=== PATIENT | male | born 1945 | race Caucasian/White ===

== ENCOUNTER 2023-01-09 11:28 | Emergency (ER) | payer BC, SELFPAY ==
--- NOTE | ~2023-01-09 | XR_ITS ---
EXAM: XR hip LT min 2V DATE: 01/09/2023 14:38 HISTORY: pain, NO INJURY . COMPARISON: None available. FINDINGS: Normal mineralization. Lumbar degenerative disc disease. Moderate bilateral hip osteoarthr itis. Scattered pelvic enthesopathy. Atherosclerotic calcification. Pelvic phleboliths. IMPRESSION: No acute osseous finding the left hip. Reviewed, dictated and finalized at location K.
--- NOTE | ~2023-01-09 | XR_ITS ---
EXAM: XR lumbar spine 2-3V DATE: 01/09/2023 14:38 HISTORY: left SI pain, NO INJURY . COMPARISON: 05/01/2008. FINDINGS: 5 nonrib-bearing lumbar-type vertebral bodies. Pedicles intact. Lumbar scoliosis and lumba r straightening multilevel severe disc space narrowing, marginal osteophytosis, and vacuum phenomenon . Multilevel mid and lower lumbar facet sclerosis and hypertrophy. Aortic calcifications without evid ent aneurysm. IMPRESSION: Lumbar scoliosis. Multilevel severe degenerative disc disease. Multilevel moderate mid and lower lumbar facet arthropathy. Reviewed, dictated and finalized at location K.
[2023-01-09 11:31] VITALS: BP 173/81; RESP 18; TEMP 36.3
--- NOTE | 2023-01-09 14:31 | ED.LOWEXIN ---
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 No numbness or tingling to the affected leg. No saddle anesthesia or difficulty controlling urine/bowel. Minimal improvement with occasional [id number] pain medication. Has a chronically bad left ankle due to a war injury and has a bad knee on the right side that is due for a total knee arthroplasty. Related Data Allergies Allergy/AdvReac Type Severity Reaction Status Date / Time ibuprofen Allergy Unknown Verified 06/27/08 11:55 NKDA Allergy Mild Uncoded 05/01/08 06:54 Review of Systems Constitutional: Constitutional: Denies chills and Denies fever(s) Musculoskeletal: Musculoskeletal: Reports back pain, Denies arthralgias and Denies joint swelling Neurologic: Denies focal weakness and Denies numbness PMFSH Past Medical History Medical History (Updated 01/09/23 @ 15:46 by Jama Miller MD) Osteoarthritis of right knee Surgical History Surgical History (Updated 01/09/23 @ 14:33 by Jama Miller MD) History of ankle surgery Social History Social History (Updated 01/09/23 @ 14:34 by Jama Miller MD) Second hand tobacco smoke exposure: No 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 Exam Narrative: GENERAL: Well-appearing, well-nourished, and in no acute distress. HEAD: Normocephalic, atraumatic. ENT: Mucous membranes moist. Back: No reproducible midline tenderness to T/L-spine. There is tenderness to the left SI region near L5-S1. EXTREMITIES: Normal range of motion. No edema. SKIN: Warm, dry, no rash. NEURO: Alert and oriented x3. PSYCH: Normal mood and affect. Course Course Emergency Course: Informed results. Recommend conservative treatment option. Follow-up with PCP. Patient also gets care at the [place]. Vital Signs Vital signs: Vital Signs Temperature 97.4 F L 01/09/23 11:31 Respiratory Rate 18 01/09/23 11:31 Blood Pressure 173/81 H 01/09/23 11:31 Oxygen Delivery Room Air 01/09/23 11:31 Temperature 97.4 F L 01/09/23 11:31 Respiratory Rate 18 01/09/23 11:31 Blood Pressure 173/81 H 01/09/23 11:31 Oxygen Delivery Room Air 01/09/23 11:31 MDM - Extremity Injury (Lower) Imaging Data Radiologist's impression: ITS Impressions Hip X-Ray 01/09/23 14:59 IMPRESSION: No acute osseous finding the left hip. Lumbar Spine X-Ray 01/09/23 15:00 IMPRESSION: Lumbar scoliosis. Multilevel severe degenerative disc disease. Multilevel moderate mid and lower lumbar facet arthropathy. Discharge Plan Discharge Clinical Impression: Chronic low back pain Patient Disposition: Home, Self-Care Condition: Stable Instructions: Chronic Back Pain (DC) Additional Instructions: Return to the ER if you have increased pain in your back, you develop lower extremity weakness/numbness/paralysis, you have numbness or tingling in your private parts, or you are unable to control your ability to urinate/stool. Prescriptions: New tizanidine 2 mg capsule 2 mg PO Q8H PRN (Reason: muscle spasticity) Qty: 14 0RF naproxen 250 mg tablet 250 mg PO BID Qty: 14 0RF Follow-up/Referrals: Justo Franklin MD [Primary Care Provider] -
[2023-01-09 16:03] VITALS: BP 138/84; PULSE 80; RESP 16; O2SAT 99
== END 2023-01-09 16:04 | disposition home or self-care (01) ==
PROVIDERS: Emergency Provider Emergency Medicine; PCP Emergency Medicine
DX: M54.50 Low back pain, unspecified (principal); G89.29 Other chronic pain
CPT/HCPCS: 72100; 73502; 99284

== ENCOUNTER 2024-07-03 01:36 | Day surgery (SDC) | payer MEDICARE, SELFPAY ==
[2024-06-22 10:55] VITALS: BMI 27.5
--- OUTSIDE RECORDS SUMMARY | 2024-07-03 01:39 | XMS_ITS | Clinical Summary ---
Author Organization [facility] Address [address] [place] [address] Care Team Providers Care Grazing Examiner Name Role Phone Unavailable Primary Care Provider Unavailabl e Source Comments [facility],non-owned Affiliates and Associated Physician Practices is amultiple site organization consisting of ambulatory clinics and hospital sitesin [place] and [place]. This disclosure is being madepursuant to the Care Everywhere program and may not contain all information available regarding this patient. Last updated 17.[facility] Allergies Active Allergy Reactions Criticality Noted Date Comments Ibuprofen Vomiting 10/10/2017 Medications * Be aware that medications may not be up to date on this document. Alwaysverify current medications with the patient. No known medications Social History Tobacco Use Types Packs/Day Years Used Date Smoking Tobacco: Never Assessed Sex and Gender Information Value Date Recorded Sex Assigned at Not on file Legal Sex Male 12:39 PM RADIOLOGICAL TECHNICIAN Gender Identity Not on file Sexual Orientation Not on file Last Filed Vital Signs Vital Sign Reading Time Taken Comments Blood Pressure 155/84 01/25/2023 2:51 PM RADIOLOGICAL TECHNICIAN Pulse 74 01/25/2023 2:51 PM RADIOLOGICAL TECHNICIAN Temperature 36.3 C (97.4 F) 01/25/2023 2:51 PM RADIOLOGICAL TECHNICIAN Respiratory Rate 16 01/25/2023 2:51 PM RADIOLOGICAL TECHNICIAN Oxygen Saturation 96% 01/25/2023 2:51 PM RADIOLOGICAL TECHNICIAN Inhaled Oxygen Concentration - - Weight 84.8 kg (187 lb) 01/25/2023 2:51 PM RADIOLOGICAL TECHNICIAN Height 177.8 cm (5' 10 ) 01/25/2023 2:51 PM RADIOLOGICAL TECHNICIAN Body Mass Index 26.83 01/25/2023 2:51 PM RADIOLOGICAL TECHNICIAN Plan of Treatment Health Maintenance Due Date Last Done Comments DTAP/TDAP/TD VACCINES (1 - Tdap) 02/04/1964 PNEUMOCOCCAL VACCINE 50+ (1 of 1 - PCV) 1995 ZOSTER VACCINE (1 of 2) 1995 Respiratory Syncytial Virus (RSV) Vaccine Pt: or over 60 yrs (1 - 1-dose 75+ series) 02/04/2020 COVID-19 VACCINE ( - season) 2023 07/01/2021, 01/14/2021, 05/31/2020, Additional history exists DEPRESSION SCREENING 03/15/2024 INFLUENZA VACCINE (Season Ended) 2024 HEPATITIS B VACCINE Aged Out No longe r eligible based on patient's age to complete this topic HIB VACCINE Aged Out No longer eligi ble based on patient's age to complete this topic HPV VACCINE Aged Out No longer eligi ble based on patient's age to complete this topic MENINGOCOCCAL (Group B) VACCINE SHARED DECISION-MAKING Aged Out No longer eligible based on patient's age to complete this topic MENINGOCOCCAL GROUPS A/C/Y/W VACCINE Aged Out No longer eligible based on patient's age to complete this topic Insurance [employer] ANTH GEN [employer]R
--- OUTSIDE RECORDS SUMMARY | 2024-07-03 01:39 | XMS_ITS | Continuity of Care Document ---
Author Organization [facility] Address [address] [place] [address] [address] [place] [address] Phone Care Team Providers Care Lokie Engineer Name Role Phone Darion Lau MD, MD Unavailable Unavailable Procedures Procedure Date YAG PC AFTER CATARACT LASER SURGERY AFTER CATARACT LASER SURGERY OFFICE/OUTPATIENT VISIT, EST DILATED EXAM RIGHT EYE DILATED EXAM LEFT EYE CATARACT SURG W/IOL, 1 STAGE CATARACT SURG W/IOL, 1 STAGE OFFICE/OUTPATIENT VISIT, [facility] OPHTHALMIC BIOMETRY OPHTHALMIC BIOMETRY SPECIAL EYE EXAM, INITIAL SPECIAL EYE EXAM, INITIAL Advance Directives Directive Yes / No Effective Date File Name No Information Encounters Encounter Description Practice Location Reason(s) For Visit Diagnoses Date Provider Providers Copied on Encounter Op[facility], [address] [place] [address] [address], [place], [id number], tel:[phone] [address] [place] [address] No Information 5 Judi Orlando. [address], [address], [place], [place], [id number] , [place]. [phone] Referring Provider: Darion Neal, [address], [place], [address] . tel:[phone] Ophthalmology [facility], [address] [place] [address] [address], [place], [place], [id number], tel:[phone] [address] [place] [address] No Information 5 Judi Orlando. [address], [address], [place], [place], [id number] , [place]. tel:[phone] Referring Provider: Darion Neal, [address], [place], [address] . tel:[phone] OFFICE/OUTPA TIENT VISIT, [facility], [address] [place] [address], [id number], [place] tel:[phone] [address] [place] [address] No Information 5 Judi Orlando. [address], [address], [place], [place], [id number] , [place]. tel:[phone] Referring Provider: Darion Neal, [address], [place], [address] . tel:[phone] [facility], [address] [place] [address], [id number], [place] tel:[phone] [address] [place] [address] No Information 4 Judi Orlando. [address], [place], [place], [id number] , [place]. [phone] Referring Provider: Darion Neal, [address], [place], [address] . tel:[phone] [facility], [address] [place] [address], [id number], [place] tel:[phone] [address] [place] [address] No Information 4 Judi Orlando. [address], [place], [place], [id number] , [place]. tel:[phone] Referring Provider: Darion Neal, [address], [place], [address] . tel:[phone] OFFICE/OUTPA TIENT VISIT, [facility], [address] [place] [address], [id number], [place] tel:[phone] [facility] D[facility] Bernard No Information Judi Orlando. [address], [place], [place], [id number] , [place]. tel:[phone] Referring Provider: Darion Lau MD P, [address], [place], [address] . tel:[phone] Family History Family Member Type Diagnosis Age At Onset No Information Payers Payer name Insurance type Covered green party ID Authordane santana(s) [facility] [id number] Social History Type Description Quantity Date Captured Comments Sex Male Smoking Status No Information Chief Complaint And Reason For Visit No Information Reason For Referral Reason For Referral No Information History Of Present Illness Encounter Date Complaint History Of Prese nt Illness No Information Functional Status Date Functional Assessmen t No Information Instructions Date Instruction Additional Infor mation No Information Assessments Type Assessment Date No Information Patient Care Teams Name Effective Dates (start - stop) Status Members No Information
--- OUTSIDE RECORDS SUMMARY | 2024-07-03 01:39 | XMS_ITS | Data Portability ---
Author Organization [facility], Main Office Address [address] [place] [address] Assessment Encounter Date Assessment Date Assessment LastModified by Organization Details LastModified Time 05/29/2024 05/29/2024 03/31/2024: VIT D 10 Gluc 119 LDL 117 [email or web address] Not available 05/29/2024 13:19:17 Plan of Treatment Reminders Order Date Submit Date Provider Last Modified By Organization Details Last Modified Time Details Appointments Any 15 2024 01:00P M Adolfo aj MD Not available Not available Not available Lab vitamin D, 25-hydrox y, total, serum 2024 025 [facility], [address] [facility], [place], [address], 06/07/2024 09:17:31 CBC w/ auto diff 2024 025 [facility], [address] [facility], [place], [address], 06/07/2024 09:16:48 CMP, serum or plasma 2024 025 [facility], [address] [facility], [place], [address], 06/07/2024 09:16:56 TSH, serum or plasma 2024 025 [facility], [address] [facility], [place], [address], 06/07/2024 09:17:05 T4, free, serum 2024 025 [facility], [address] [facility], [place], [address], 06/07/2024 09:17:14 lipid panel, serum 2024 025 [email or web address] [facility], [address], [place], [address], 06/07/2024 09:17:23 vitamin D, 25-hydrox y, total, serum 2024 025 [facility], [address] [facility], [place], [address], 04/01/2024 05:32:28 CBC w/ auto diff 2024 025 [facility], [address] [facility], [place], [address], 04/01/2024 05:32:25 CMP, serum or plasma 2024 025 [facility], [address] [facility], [place], [address], 04/01/2024 05:32:24 TSH, serum or plasma 2024 025 [facility], [address] [facility], [place], [address], 04/01/2024 05:32:27 T4, free, serum 2024 025 [facility], [address] [facility], [place], [address], 04/01/2024 05:32:26 lipid panel, serum 2024 025 [facility], [address] [facility], [place], [address], 04/01/2024 05:32:22 Referral orthopedi c surgeon referral - Please call patient to schedule an appointme nt. Thank you. 2024 025 JEFFRY Varner MD, [address], [address], [address], 05/29/2024 18:25:19 Procedures colonosco py screening (PROC) - Please call patient to schedule an appointme nt. Thank you. 2024 025 JEFFRY Jensen MD, [address] [place] [address] [address], [place], [address], 05/30/2024 10:00:58 upper endoscopy procedure (EGD) (PROC) - Please call patient to schedule an appointme nt. Thank you. 2024 025 JEFFRY Jensen MD, [address] [place] [address] [address], [place], [address], 05/30/2024 10:00:58 colonosco py screening (PROC) 2024 025 JEFFRY Jensen MD, [address] [place] [address] [address], [place], [address], 05/04/2024 10:01:08 upper endoscopy procedure (EGD) (PROC) - Please call patient to schedule. 2024 025 JEFFRY Jensen MD, [address] [place] [address] [address], [place], [address], 05/04/2024 10:30:45 Surgeries None recorded. Imaging None recorded. Medication Orders rosuvasta tin 20 mg tablet 2024 025 [facility] [address], [place], [address], 05/29/2024 13:20:15 cholecalc iferol (vitamin D3) 1,250 mcg (50,000 unit) capsule 2024 025 [facility] [address], [address], 05/29/2024 13:20:15 losartan 25 mg tablet 2024 025 [facility] [address], [place], [address], 05/29/2024 13:20:16 omeprazol e 20 mg capsule,d elayed release 2024 025 [facility] [address], [place], [address], 05/29/2024 13:20:15 losartan 25 mg tablet 2024 025 [facility] [address] In [facility], [address] [place] [address], [place], [address], 03/27/2024 16:59:52 omeprazol e 20 mg capsule,d elayed release 2024 025 [facility] [address] In [facility], [address] [place] [address], [place], [address], 03/27/2024 16:59:53 Patient TargetsNo targets recorded. Patient InstructionsNo instructions recorded. Reason for Referral Orthopedic Surgeon Referral for Pain of left hip joint Please call patient to schedule an appointment. Thank you. Referring Physician: Adolfo Hernandez, Internal Medicine, Encounter Date: 05/29/2024 Results Created Date Observation Date Name Description Value Unit Range Abnormal Flag Note LastModifiedBy Organization Detail LastModifiedTime 03/31/1904/01/2024 LIPID PANEL , STAND SABINA cholesterol, total 193 mg/dL <200 normal Not Available [facility] [address] [address] [place], [address], 04/01/2024 05:32:22 03/31/1904/01/2024 LIPID PANEL , STAND SABINA HDL cholesterol 55 mg/dL > or = 40 normal Not Available [facility] [address] [place], [address], 04/01/2024 05:32:22 03/31/19 25 04/01/2024 LIPID PANEL , STAND SABINA triglyceride s 100 mg/dL <150 normal Not Available [facility] [address] [place], [address], 04/01/2024 05:32:22 03/31/1904/01/2024 LIPID PANEL , STAND SABINA LDL-choleste rol 117 mg/dL _(sourav c) high Refer ence range : <100 Gabriela able range <100 mg/dL for prima ry preve ntion ; <70 mg/dL for patie nts with CHD or diabe tic patie nts with > or = 2 CHD risk facto rs. LDL-C is now calcu lated using the Opal n-Hop kins calcu latio n, which is a valid ated novel metho d provi roman anderson r accur acy than the Fried nikia equat ion in the estim ation of LDL-C . Opal rojas SS et al. MICHELLE. 2013; 310(1 9): 2061- 2068 (http ://ed ucati on.ShoutNow. com/f aq/FA Q164) Not Available [facility] [address] [address] [address], [place], [address], 04/01/2024 05:32:22 03/31/1904/01/2024 LIPID PANEL , STAND SABINA chol/HDLC ratio 3.5 (calc ) <5.0 normal Not Available [facility] [address] [address] [place], [address], 04/01/2024 05:32:22 03/31/1904/01/2024 LIPID PANEL , STAND SABINA non HDL cholesterol 138 mg/dL _(sourav c) <130 high For patie nts with diabe antonietta plus 1 major ASCVD risk facto r, treat ing to a non-H DL-C goal of <100 mg/dL (LDL- C of <70 mg/dL ) is consi tom rubio c optio n. Not Available [facility] [address] [place], [address], 04/01/2024 05:32:22 01/17/20 25 04/01/2024 COMPR EHENS ALFREDO METAB OLIC PANEL glucose 119 mg/dL 65-99 high Fasti ng refer ence inter jono For someo ne witho ut known diabe antonietta, a gluco se value betwe en 100 and 125 mg/dL is consi stent with predi abete s and shoul d be confi rmed with a follo w-up test. Not Available [address], [address], 04/01/2024 05:32:24 03/31/19 25 04/01/2024 COMPR EHENS ALFREDO METAB OLIC PANEL urea nitrogen (BUN) 15 mg/dL 7-25 normal Not Available [address], [address], 04/01/2024 05:32:24 03/31/19 25 04/01/2024 COMPR EHENS ALFREDO METAB OLIC PANEL creatinine 1.05 mg/dL 0.70-1 .28 normal Not Available [address] [address] [place], [address], 04/01/2024 05:32:24 03/31/19 25 04/01/2024 COMPR EHENS ALFREDO METAB OLIC PANEL eGFR 72 mL/mi n/1.7 3m2 > or = 60 normal Not Available [address], [address], 04/01/2024 05:32:24 03/31/19 25 04/01/2024 COMPR EHENS ALFREDO METAB OLIC PANEL BUN/creatini ne ratio SEE NOTE: (calc ) 6-22 Not Repor kay: BUN and Creat inine are withi n refer ence range . Not Available [facility] [address], [address], 04/01/2024 05:32:24 03/31/19 25 04/01/2024 COMPR EHENS ALFREDO METAB OLIC PANEL sodium 136 mmol/ L 135-14 6 normal Not Available [address], [address], 04/01/2024 05:32:24 03/31/19 25 04/01/2024 COMPR EHENS ALFREDO METAB OLIC PANEL potassium 4.4 mmol/ L 3.5-5. 3 normal Not Available [address], [address], 04/01/2024 05:32:24 03/31/19 25 04/01/2024 COMPR EHENS ALFREDO METAB OLIC PANEL chloride 102 mmol/ L 98-110 normal Not Available [address], [address], 04/01/2024 05:32:24 03/31/19 25 04/01/2024 COMPR EHENS ALFREDO METAB OLIC PANEL carbon dioxide 29 mmol/ L 20-32 normal Not Available [address], [address], 04/01/2024 05:32:24 03/31/19 25 04/01/2024 COMPR EHENS ALFREDO METAB OLIC PANEL calcium 8.9 mg/dL 8.6-10 .3 normal Not Available [address], [address], 04/01/2024 05:32:24 03/31/19 25 04/01/2024 COMPR EHENS ALFREDO METAB OLIC PANEL protein, total 6.6 g/dL 6.1-8. 1 normal Not Available [address], [address], 04/01/2024 05:32:24 03/31/19 25 04/01/2024 COMPR EHENS ALFREDO METAB OLIC PANEL albumin 4.2 g/dL 3.6-5. 1 normal Not Available [address], [address], 04/01/2024 05:32:24 03/31/19 25 04/01/2024 COMPR EHENS ALFREDO METAB OLIC PANEL globulin 2.4 g/dL_ (calc ) 1.9-3. 7 normal Not Available [address], [address], 04/01/2024 05:32:24 03/31/19 25 04/01/2024 COMPR EHENS ALFREDO METAB OLIC PANEL albumin/glob ulin ratio 1.8 (calc ) 1.0-2. 5 normal Not Available [address], [address], 04/01/2024 05:32:24 03/31/19 25 04/01/2024 COMPR EHENS ALFREDO METAB OLIC PANEL bilirubin, total 0.6 mg/dL 0.2-1. 2 normal Not Available [address], [address], 04/01/2024 05:32:24 03/31/19 25 04/01/2024 COMPR EHENS ALFREDO METAB OLIC PANEL alkaline phosphatase 98 U/L 35-144 normal Not Available [address], [address], 04/01/2024 05:32:24 03/31/19 25 04/01/2024 COMPR EHENS ALFREDO METAB OLIC PANEL AST 15 U/L 10-35 normal Not Available [address], [address], 04/01/2024 05:32:24 03/31/19 25 04/01/2024 COMPR EHENS ALFREDO METAB OLIC PANEL ALT 15 U/L 9-46 normal Not Available [address], [address], 04/01/2024 05:32:24 03/31/19 25 04/01/2024 CBC (INCL UDES DIFF/ PLT) white blood cell count 7.1 thous and/u L 3.8-10 .8 normal Not Available [address], [address], 04/01/2024 05:32:25 03/31/1904/01/2024 CBC (INCL UDES DIFF/ PLT) red blood cell count 4.96 kendra on/uL 4.20-5 .80 normal Not Available [address], [address], 04/01/2024 05:32:25 03/31/1904/01/2024 CBC (INCL UDES DIFF/ PLT) hemoglobin 15.3 g/dL 13.2-1 7.1 normal Not Available [address], [address], 04/01/2024 05:32:25 03/31/1904/01/2024 CBC (INCL UDES DIFF/ PLT) hematocrit 48.0 % 38.5-5 0.0 normal Not Available [address], [address], 04/01/2024 05:32:25 03/31/1904/01/2024 CBC (INCL UDES DIFF/ PLT) MCV 96.8 fL 80.0-1 00.0 normal Not Available [address], [address], 04/01/2024 05:32:25 03/31/1904/01/2024 CBC (INCL UDES DIFF/ PLT) MCH 30.8 pg 27.0-3 3.0 normal Not Available [address], [address], 04/01/2024 05:32:25 03/31/1904/01/2024 CBC (INCL UDES DIFF/ PLT) MCHC 31.9 g/dL 32.0-3 6.0 low For adult s, a sligh t decre ase in the calcu lated MCHC value (in the range of 30 to 32 g/dL) is most likel y not clini deidre signi fican t; howev er, it lizeth d be inter prete d with cauti on in corre [facility] n with other red cell gregory eters and the patie nt's clini sourav condi tion. Not Available [facility] [address], [address], 04/01/2024 05:32:25 03/31/1904/01/2024 CBC (INCL UDES DIFF/ PLT) RDW 12.7 % 11.0-1 5.0 normal Not Available [facility] [address], [address], 04/01/2024 05:32:25 03/31/1904/01/2024 CBC (INCL UDES DIFF/ PLT) platelet count 257 thous and/u L 140-40 0 normal Not Available [facility] [address], [address], 04/01/2024 05:32:25 03/31/19 25 04/01/2024 CBC (INCL UDES DIFF/ PLT) MPV 9.9 fL 7.5-12 .5 normal Not Available [address], [address], 04/01/2024 05:32:25 03/31/19 25 04/01/2024 CBC (INCL UDES DIFF/ PLT) absolute neutrophils 4963 cells /uL 1500-7 800 normal Not Available [address], [address], 04/01/2024 05:32:25 03/31/19 25 04/01/2024 CBC (INCL UDES DIFF/ PLT) absolute lymphocytes 1519 cells /uL 850-39 00 normal Not Available [address], [address], 04/01/2024 05:32:25 03/31/19 25 04/01/2024 CBC (INCL UDES DIFF/ PLT) absolute monocytes 391 cells /uL 200-95 0 normal Not Available [facility] [address], [address], 04/01/2024 05:32:25 03/31/19 25 04/01/2024 CBC (INCL UDES DIFF/ PLT) absolute eosinophils 178 cells /uL 15-500 normal Not Available [facility] [address], [address], 04/01/2024 05:32:25 03/31/19 25 04/01/2024 CBC (INCL UDES DIFF/ PLT) absolute basophils 50 cells /uL 0-200 normal Not Available [facility] [address], [address], 04/01/2024 05:32:25 03/31/1904/01/2024 CBC (INCL UDES DIFF/ PLT) neutrophils 69.9 % normal Not Available [facility] [address], [address], 04/01/2024 05:32:25 03/31/19 25 04/01/2024 CBC (INCL UDES DIFF/ PLT) lymphocytes 21.4 % normal Not Available [facility] [address], [address], 04/01/2024 05:32:25 03/31/1904/01/2024 CBC (INCL UDES DIFF/ PLT) monocytes 5.5 % normal Not Available [facility] [address], [address], 04/01/2024 05:32:25 03/31/1904/01/2024 CBC (INCL UDES DIFF/ PLT) eosinophils 2.5 % normal Not Available [facility] [address], [address], 04/01/2024 05:32:25 03/31/19 25 04/01/2024 CBC (INCL UDES DIFF/ PLT) basophils 0.7 % normal Not Available [facility] [address] [place], [address], 04/01/2024 05:32:25 03/31/1904/01/2024 T4, FREE T4, free 1.1 NG/dL 0.8-1. 8 normal Not Available [facility] [address] [address] [place], [address], 04/01/2024 05:32:26 03/31/1904/01/2024 TSH TSH 2.32 mIU/L 0.40-4 .50 normal Not Available [facility] [address] [address] [place], [address], 04/01/2024 05:32:27 03/31/1904/01/2024 VITAM IN D,25- OH,TO JC,I A vitamin D,25-oh,tota l,ia 10 NG/mL 30-100 low Vitam in D Statu s 25-OH Vitam in D: Defic iency : <20 ng/mL Insuf ficie ncy: 20 - 29 ng/mL Optim al: > or = 30 ng/mL For 25-OH Vitam in D testi ng on patie nts on D2-madrigal pplem entat ion and patie nts for whom quant itati on of D2 and D3 fract ions is requi red, the [facility](TM ) 25-OH VIT D, (D2,D 3), LC/MS /MS is recom marquez d: order code 48142 (abgiail ents >2yrs ). See Note 1 Note 1 For addit ional infor lidya pereyra refer to http: //blanca rojas.Maninder stDia gnost ics.c om/fa q/FAQ 199 (This link is being provi ded for infor gavino man/ jonnie figueroa purpo ses only. ) Not Available [address] [address] [place], [address], 04/01/2024 05:32:28 02/11/20 21 XR, knee No observ ation record ed. [id number] [place] [address], [place], [address], 05/13/2022 13:33:34 Result Notes None recorded. Problems Name Problem SNOMED Code Status Onset Date Resolution Date Notes Provider Name and Address Organization Details Recorded Time Gastroesoph ageal reflux disease without esophagitis 828290251 Active 2024 Adolfo aj MD [address], [place], [address], [facility] 16:57:13 Essential hypertensio n 80933185 Active 2024 Adolfo aj MD [address], [address], [place], [address], [facility] 16:58:10 Pain of left knee joint 7743533376248 07 Active 2024 Adolfo aj MD [address], [address], [place], [address], [facility] 16:58:40 Vitamin D deficiency 55478702 Active 2024 Adolfo aj MD [address], [address], [place], [address], [facility] 16:59:19 Hyperlipide cooper 76541875 Active 2024 Adolfo aj MD [address], [place], [address], [facility] 5 12:59:39 Pain of left hip joint 5743712348255 00 Active 2024 Adolfo aj MD [address], [place], [address], [facility] 5 13:17:57 Problem Notes None recorded. Procedures Surgical History Date Name Laterality Status Provider Name and Address Organization Details Recorded Time total knee replacement completed RAMBO Weldon [facility] 03/27/2024 16:21:57 Hernia Repair completed RAMBO Hinton [facility] 03/27/2024 16:23:02 Carpal tunnel surgery completed Yokasta Raines Tyra [facility] 03/27/2024 16:23:16 excision of lipoma completed Yokasta Raines [facility] 03/27/2024 16:23:52 Imaging Results Imaging Date Name Status LastModified by Organiz ation Details LastModified Time 02/10/2021 XR, knee completed [id number] [place] [address] [facility] [facility] [address], [place], [address], 05/13/2022 13:33:34 Procedure Notes None recorded. Medical Equipment None Reported. Allergies Allergen ID Allergen Name Allergen Category Reaction Reaction Severity Criticality Documentation Date Start Date Code Code System Note Provider Name and Address Organization Details Recorded Time 09993 ibuprofen medicatio n vomiting Not available Not available 05/13/2022 5640 RxNorm Not Available [facility] 13:33:32 Medications Name Sig Start Date Stop Date Status Note LastModified by Organization Details LastModified Time amoxicillin 500 mg capsule TAKE 4 CAPSULES BY MOUTH 1 HOUR PRIOR TO DENTAL APPOINTME NT 03/27 completed Not Available Not Available Not Available hydrocodone 10 mg-acetamin ophen 325 mg tablet TAKE 1 TABLET BY MOUTH EVERY 6 HOURS NEEDED FOR 5 DAYS 03/27 completed Not Available Not Available Not Available triamcinolo ne acetonide 0.1 % topical cream PLEASE SEE ATTACHED FOR DETAILED DIRECTION S 03/27 completed Not Available Not Available Not Available Kenalog 10 mg/mL suspension for injection In office injection administe red by the provider 03/27 completed [facility]: 0003- 0494- 20 Not Available Not Available Not Available cephalexin 500 mg capsule TAKE 1 CAPSULE BY MOUTH EVERY 6 HOURS UNTIL FINISHED 03/27 completed Not Available Not Available Not Available losartan 25 mg tablet Take 1 tablet every day by oral route for 90 days. 2024 active Not Available Not Available Not Avai lable omeprazole 20 mg capsule,del ayed release Take 1 capsule every day by oral route as needed for 90 days. 2024 active Not Available Not Available Not Avai lable rosuvastati n 20 mg tablet TAKE 1 TABLET BY MOUTH EVERY DAY active Not Available Not Available No t Available Antacid 200 mg (as calcium carbonate 500 mg) chewable tablet OTC 05/29 completed Not Available Not Available Not Available lidocaine (PF) 10 mg/mL (1 %) injection solution In office injection administe red by the provider 03/27 completed [facility]: 0409- 4276- 17 Not Available Not Available Not Available cholecalcif marissa (vitamin D3) 1,250 mcg (50,000 unit) capsule TAKE 1 CAPSULE BY MOUTH ONE TIME PER WEEK FOR 90 DAYS active Not Available Not Available No t Available Vitals Date Recorded Body mass index (BMI) Body height Body weight Provider Name and Address Organization Details Last Updated DateTime 02/10/2021 30.9 kg/m2 170.18 cm 40468.7 g Not Available [facility] 05/13/2022 13:29:55 Date Recorded Body weight Body mass index (BMI) Body height Body temperature Systolic blood pressure Diastolic blood pressure Provider Name and Address Organization Details Last Updated DateTime 5 [address].7 4 g 30.1 kg/m2 170.18 cm 98 [degF] 140 mm[Hg] 76 mm[Hg] RAMBO Weldon [facility] 5 16:26:18 Date Recorded Body height Body mass index (BMI) Body weight Body temperature Heart rate Systolic blood pressure Diastolic blood pressure Provider Name and Address Organization Details Last Updated DateTime 5 170.18 cm 31 kg/m2 80318.2 9 g 98.3 [degF] 60 /min 126 mm[Hg] 78 mm[Hg] RAMBO Weldon [facility] 5 12:48:55 Social History Question Answer Notes LastModified by Organizat ion Details LastModified Time Tobacco Smoking Status Never Smoker Not Available [facility] 05/13/2022 13:29:46 Do You Have An Advance Directive? Yes Information not available 03/27/2024 What Is Your Level Of Alcohol Consumption? None [id number] Information not available 05/13/2022 Are You Blind Or Do You Have Difficulty Seeing? No Information not available 03/27/2024 What Is Your Level Of Caffeine Consumption? Moderate Information not available 03/27/2024 In The 14 Days Before Symptom Onset, Have You Had Close Contact With A Laboratory-confi rmed COVID-19 While That Case Was Ill? No Information not available 03/27/2024 In The 14 Days Before Symptom Onset, Have You Had Close Contact With A Person Who Is Under Investigation For COVID-19 While That Person Was Ill? No Information not available 03/27/2024 Are You Currently Employed? No Retired September 2023 Information not available 03/27/2024 Are You Deaf Or Do You Have Serious Difficulty Hearing? Yes Information not available 03/27/2024 What Type Of Diet Are You Following? REGULAR Information not available 03/27/2024 What Is The Highest Grade Or Level Of School You Have Completed Or The Highest Degree You Have Received? [id number] Information not available 03/27/2024 What Is The Fluoride Status Of Your Home? Unknown Information not available 03/27/2024 Where Do You Live? [facility] Information not available 03/27/2024 Do You Have A Medical Power Of Pneumatic Tube Repairer? Yes Information not available 03/27/2024 What Was The Date Of Your Most Recent Tobacco Screening? 05/29/2024 Information not available 05/29/2024 Do You Have Any Pets? No Information not available 03/27/2024 What Is Your Relationship Status? Information not available 03/27/2024 Do You Use Your Seat Belt Or Car Seat Routinely? Yes Information not available 03/27/2024 Do You Have Smoke And Carbon Monoxide Detectors In Your Home? Yes Information not available 03/27/2024 Are You Passively Exposed To Smoke? No Information not available 03/27/2024 Are There Any Smokers In Your House? No Information not available 03/27/2024 Do You Feel Stressed (tense, Restless, Nervous, Or Anxious, Or Unable To Sleep At Night)? [id number] Information not available 03/27/2024 Do You Use Any Illicit Or Recreational Drugs? No Information not available 03/27/2024 Has Tobacco Cessation Counseling Been Provided? No N/a Information not available 03/27/2024 Have You Recently Traveled Abroad? No Information not available 03/27/2024 Do You Or Have You Ever Used Any Other Forms Of Tobacco Or Nicotine? No Information not available 03/27/2024 Sex: Unknown Functional Status Question Answer Note LastModified by Organizat ion Details LastModified Time Do you have difficulty walking or climbing stairs? No Information not available 03/27/2024 Are you able to walk? YESWOREST Information not available 03/27/2024 Do you have difficulty doing errands alone? No Information not available 03/27/2024 Are you able to care for yourself? Yes Information not available 03/27/2024 Do you have difficulty dressing or bathing? No Information not available 03/27/2024 What is your exercise level? None stays active Information not available 03/27/2024 Mental Status Question Answer Note LastModified by Organization D etails LastModified Time Do you have difficulty concentrating, remembering or making decisions? No [email or web address] Information no t available 03/27/2024 Family History Relationship Description Onset Age of this Age Resolved Age Notes LastModified by Organization Details LastModified Time Mother Diabetes mellitus [id number] Not available 05/13/2022 13:29:49 Father Alzheimer's disease Not available 2024 16:12:41 Medical History Condition Response NERVE DISEASE N BLINDNESS N RHEUMATIC FEVER N KIDNEY STONES N BLADDER PROBLEMS N MRSA N OTHER # 1 N POLIO N LUNG DISEASE/DISORDER N HISTORY OF DRUG ABUSE N RADIATION / CHEMOTHERAPY N COPD N Other # 2 N BLOOD DISEASES N EAR OR HEARING PROBLEMS N MUMPS N SHINGLES N DEPRESSION (INCLUDING POST ) N BOWEL PROBLEMS N FAILED BACK SYNDROME N STROKE/TIA N ULCERS N BENIGN PROSTATIC HYPERPLASIA N MEASLES N HYPOTENSION N MYOCARDIAL INFARCTION N OBESITY N GERD/NAUSEA N ANEURYSM N URINARY/BLADDER/KIDNEY PROBLEMS N CORONARY ARTERY DISEASE (CAD) N Do you have Advance directive? N ADDICTION CONCERNS N Impotence N ENDOMETRIOSIS N USE OF BLOOD THINNERS N SKIN PROBLEMS N GASTROINTESTINAL DISORDER N PERIPHERAL VASCULAR DISEASE N MUSCLE,JOINT OR BONE PROBLEMS N GASTROINTESTINAL BLEEDING N BLOOD CLOTS N ASTHMA N CATARACTS N Abdominal Pain N ERECTILE DYSFUNCTION N ARTERIAL INSUFFICIENCY N VARICOSITIES N GI PROBLEMS N Low Testosterone N INFERTILITY N AIDS/HIV N CHEMOTHERAPY / RADIATION N LIVER DISEASE N MALE HYPOGONADISM N Deficiency N TOURETTE'S N ANXIETY DISORDER N BLOOD TRANSFUSION N ANEMIA/BLOOD DISORDER N CHRONIC EAR INFECTIONS N TUBERCULOSIS N GLAUCOMA N FOOT PROBLEM N DIVERTICULITIS N SLEEP APNEA N CHICKENPOX N ALLERGIES/HAYFEVER N BACK INJECTIONS N INFECTIOUS DISEASE N PROSTATE N HEART ARRHYTHMIA N ESRD N INSOMNIA N HIGH CHOLESTEROL / HYPERLIPIDEMIA N EYE PROBLEMS N HYPERTHYROIDISM N PVD N EDEMA N CHRONIC PAIN SYNDROME N HYPOTHYROIDISM N CAROTID BLOCKAGE N CONSTIPATION N BACK / NECK PROBLEMS N ATHEROSCLEROSIS N BREAST PROBLEMS N DIALYSIS N POLYCYSTIC OVARIES N ECZEMA N OSTEOPOROSIS N ARTHRITIS N NO SIGNIFICANT PAST MEDICAL HISTORY N APPENDICITIS N DIABETES, TYPE N BAD TEETH N VON WILLIBRAND'S DISEASE N ENT N HEARTBURN / REFLUX N GI N AUTISM SPECTRUM DISORDER (ASD) N POST LAMINECTOMY SYNDROME N HEPATITIS / LIVER DISEASE N GOUT N SLEEP DISORDER N ALZHEIMER'S DISEASE N Brain Problems N DEMENTIA N HERPES N SEIZURES/EPILEPSY N HEADACHES/MIGRAINES N VASCULAR DISEASE N PACEMAKER N DIZZINESS N HEART DISEASE/HEART PROBLEMS N KIDNEY DISEASE N MULTIPLE SCLEROSIS N NEUROPSYCHOLOGICAL N CANCER: SPECIFY N CARDIAC ARRHYTHMIA N ATRIAL FIBRILLATION N Gall Stones N PULMONARY EMBOLISM N AUTOIMMUNE DISEASE N Immunizations Vaccine Type Date Status Note Provider Nam e and Address Organization Details Recorded Time COVID-19, mRNA, LNP-S, PF, 100 mcg/0.5mL dose or 50 mcg/0.25mL dose 05/03/2020 completed RAMBO Weldon [employer] 03/27/2024 16:10:25 COVID-19, mRNA, LNP-S, PF, 100 mcg/0.5mL dose or 50 mcg/0.25mL dose 05/31/2020 completed RAMBO Weldon [employer] 03/27/2024 16:10:26 COVID-19, mRNA, LNP-S, PF, 100 mcg/0.5mL dose or 50 mcg/0.25mL dose 07/01/2021 completed [place]BO [place] [employer] [facility] 03/27/2024 16:10:26 COVID-19, mRNA, LNP-S, PF, 100 mcg/0.5mL dose or 50 mcg/0.25mL dose 01/14/2021 completed RAMBO Weldon [place] [employer] [facility] 03/27/2024 16:10:26 Past Encounters Encounter ID Performer Location Encounter Start Date Encounter Closed Date Diagnosis/Indication Diagnosis SNOMED-CT Code Diagnosis ICD10 Code Diagnosis Note [id number] [facility] [address] [facility] [place] [address] 06/21/2020 00:00:00 06/21/2020 14:58:55 [id number] [facility] [address] [facility] [address] [place] [address] 10/04/2020 00:00:00 10/04/2020 14:36:38 [id number] [facility] [address] [facility] [address] [place] [address] 02/10/2021 00:00:00 02/10/2021 18:23:59 [id number] Adolfo lujan MD [facility] [address] [facility] [place] [address] 03/27/2024 15:31:10 03/27/2024 17:01:39 Screening - NAD [id number] Z13.9 C-scope: States that he would like to repeat this, states that he did have this about 7 years ago in [place] Get yearly flu shot, tdap, shingrix, RSV vaccine and COVID 19 boosters, he has declined these RTC in 2 months, do labs, ER if worse, he did verbalize his understand ing of the above Screening for malignant neoplasm of colon [id number] Z12.11 Gastroesop hageal reflux disease without esophagitis 215678705 K21.9 Essential hypertension 79635716 I10 Pain of le ft knee joint [id number] 89268 M25.562 States that he will get TKR in 01/[address] [place] [address] Yun Vitamin D deficiency 347 36681 E55.9 [id number] Adolfo lujan MD [facility] [place] [address] [facility] [place] [address] 05/29/2024 11:27:26 05/29/2024 13:22:15 Screening - NAD [id number] Z13.9 C-scope: States that he would like to repeat this, states that he did have this about 7 years ago in [place] Get yearly flu shot, tdap, shingrix, RSV vaccine and COVID 19 boosters, he has declined these RTC in 3 months, do labs, ER if worse, he did verbalize his understand ing of the above Screening for malignant neoplasm of colon 899232010 Z12.11 Gastroesop hageal reflux disease without esophagitis 042973563 K21.9 Essential hypertension 61630774 I10 Pain of le ft knee joint [id number] 85736 M25.562 States that he will get TKR in 01/[address] [place] [address] Yun Vitamin D deficiency 347 92501 E55.9 Get on vit d weekly and get labs Hyperlipidemia 95302487 E78.5 Start on crestor 20mg daily, more diet neededGet labs Pain of le ft hip joint [id number] [address] Jama Varner in [facility] as per his wishes Health Concerns Section Related Observation LastModified by Organization Detai ls LastModified Time None Recorded Concern Status LastModified by Organization Details LastModified Time None Recorded Advance Directives Directive Y: Payers Encounter Date Sequence Insurance Name Policy Number Policy Vincent Covered Member ID Vincent Member ID Guarantor Name 03/27/2024 1 [facility] (MEDICARE REPLACEMENT/A DVANTAGE - PPO) [id number] Victor M Nelson [id number] Victor M Nelson 05/29/2024 1 [facility] (MEDICARE REPLACEMENT/A DVANTAGE - PPO) [id number] Victor M Nelson [id number] Victor M Nelson Notes Date Note Type Note Provider Name and Address Organization Details Recorded Time 03/27/2024 text/html OV 03/27/2024:Here to establish care Present Hx:ALEEPAUL Here to discuss above, would like to get labs, has noted some GERD symptoms, states that he was told he may have 'ulcers' no blood in stool, normal appetite, states that he has recently retired and would like to get 'everything checked out' Adolfo Hernandez MD [address], [place], [address], [email or web address] [facility] [employer] [facility] 04/10/2024 14:08:09 05/29/2024 text/html OV 03/27/2024:Here to establish care Present Hx:NOLANThierry Here to discuss above, would like to get labs, has noted some GERD symptoms, states that he was told he may have 'ulcers' no blood in stool, normal appetite, states that he has recently retired and would like to get 'everything checked out' OV 05/29/2024: Here for his f/u apt, he did do the labs, he also c/o L hip pain, insidious, no acute trauma, states that he feels that it 'pops', no N/T or weakness, states that he would like to see an ortho in [facility] as that his where is daughter lives Adolfo Hernandez MD [address], [place], [address], [email or web address] [facility] 05/29/2024 13:38:27
[2024-07-03 12:23] VITALS: BP 157/79; PULSE 67; RESP 18; TEMP 36.1; O2SAT 98
[2024-07-03] MEDS: LACTATED RINGERS 1,000 ML 150 ML IV CONT (12:35)
--- NOTE | 2024-07-03 13:31 | WPDANESEPPF ---
Anes - Initial Pre Proc Eval Procedure: Operation Date: 07/03/24 13:30 Proposed Procedures p Esophagogastroduodenoscopy&Screen Colon - Davide Angel MD Date/Time: 07/03/24 13:31 Surgeon: Davide Angel MD Pre Op Diagnosis: SCREENING, Gastro-esophageal reflux disease withou Patient Data Age: 79 Gender: M Height: 1.78 m Weight: 84.1 kg Last Vital Signs Temp 36.1 C L 07/03/24 12:23 Pulse 67 07/03/24 12:23 Resp 18 07/03/24 12:23 BP 157/79 H 07/03/24 12:23 Pulse Ox 98 07/03/24 12:23 O2 Del Method Room Air 07/03/24 12:23 Allergies Allergy/AdvReac Type Severity Reaction Status Date / Time ibuprofen Allergy Unknown Vomiting Verified 07/03/24 12:21 Home Medications ?Medication ?Instructions ?Recorded ?Confirmed ?Type naproxen 250 mg tablet 250 mg PO BID #14 tabs 01/09/23 06/22/24 Rx losartan 25 mg tablet 25 mg PO DAILY 06/22/24 07/03/24 History omeprazole 20 mg capsule,delayed 20 mg PO DAILY 06/22/24 07/03/24 History release rosuvastatin 20 mg tablet (Crestor) 20 mg PO DAILY 06/22/24 07/03/24 History Patient hx anesthesia problems: none Family hx anesthesia problems: none Results Review: All pre-operative results and documents have been reviewed as part of the pre-operative evaluation. 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 Spiritual care concerns: No Anes - Eval Final PreProcedure Day of Procedure 07/03/24 13:31 Patient weight: overweight Heart: regular rate and rhythm Lungs: clear to auscultation Airway: Mallampati scale class II Neurological: alert and oriented Last oral intake: >/= 8 hours ASA classification: II Emergent: no Anesthetic plan: proceed Anesthesia type and monitoring: general GIVS and standard monitoring Results Review: All pre-operative results and documents have been reviewed as part of the pre-operative evaluation. Informed Consent: The patient's anesthetic plan and its attendant risks and benefits were discussed with the patient/family/POA. Questions were solicited and answers provided to the satisfaction of the patient/family/POA.
--- NOTE | 2024-07-03 14:14 | P.HP_ITS ---
History of Present Illness History of Present Illness Consent: Risks, benefits, and alternatives have been discussed and questions answered. Patient agrees to proceed with procedure. Chief complaint: SCREENING, Gastro-esophageal reflux disease withou Narrative: Victor M Nelson is a 79 year old male here for first egd, h/o gerd for last 5 years much better since started using ppi, last colonoscopy about 11 years ago Review of Systems Review of Systems: All systems reviewed & are unremarkable except as noted in HPI and below PMFSH Past Medical History Medical History (Updated 07/03/24 @ 14:16 by Davide Angel MD) Colon cancer screening GERD (gastroesophageal reflux disease) HTN (hypertension) Osteoarthritis of right knee Surgical History Surgical History (Updated 01/09/23 @ 14:33 by Jama Miller MD) History of ankle surgery Social History Social History Smoking status: Never smoker Second hand tobacco smoke exposure: No Substance use type: does not use Living arrangements: alone 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 Spiritual care concerns: No Meds Home Medications and Allergies Home Medications ?Medication ?Instructions ?Recorded ?Confirmed ?Type naproxen 250 mg tablet 250 mg PO BID #14 tabs 01/09/23 06/22/24 Rx losartan 25 mg tablet 25 mg PO DAILY 06/22/24 07/03/24 History omeprazole 20 mg capsule,delayed 20 mg PO DAILY 06/22/24 07/03/24 History release rosuvastatin 20 mg tablet (Crestor) 20 mg PO DAILY 06/22/24 07/03/24 History Allergies Allergy/AdvReac Type Severity Reaction Status Date / Time ibuprofen Allergy Unknown Vomiting Verified 07/03/24 12:21 Vital Signs Vital Signs - 24 hr 07/03/24 12:23 Temperature 97 F L Pulse Rate 67 Respiratory Rate 18 Blood Pressure 157/79 H Pulse Oximetry 98 Oxygen Delivery Room Air Exam Const: General: comfortable and no acute distress HENMT: Face/Nose/Sinus: Normal nares present Eyes: General: appearance normal, both eyes and all related structures Neck: Neck: no JVD Resp: Auscultation: clear to auscultation bilaterally Cardio: Rate: regular rate Rhythm: regular rhythm GI: Inspection: non-distended GI Palp: Yes Soft to palpation Skin: General skin exam: normal color Neuro: Speech: normal speech Extrem: General: normal to inspection Psych: Mental Status: mental status grossly normal Assessment and Plan Assessment and plan (1) GERD (gastroesophageal reflux disease): Code(s): K21.9 - Gastro-esophageal reflux disease without esophagitis Status: Acute Assessment and Plan: egd, better with ppi (2) Colon cancer screening: Code(s): Z12.11 - Encounter for screening for malignant neoplasm of colon Status: Acute Assessment and Plan: colonoscopy
--- NOTE | 2024-07-03 14:24 | SUR.OPER ---
EGD ended at 1421, colon began at 1426.
[2024-07-03 14:37] VITALS: BP 96/68; PULSE 66; RESP 16; O2SAT 98
[2024-07-03 14:47] VITALS: BP 92/61; PULSE 55; RESP 16; O2SAT 98
[2024-07-03 14:57] VITALS: BP 142/84; PULSE 59; RESP 20; O2SAT 99
== END 2024-07-03 15:13 | disposition home or self-care (01) ==
PROVIDERS: PCP Internal Medicine; Visit Provider Internal Medicine Gastroenterology
PROC: 0DJ08ZZ Inspection of Upper Intestinal Tract, Via Natural or Artificial Opening Endoscopic (ICD-10-PCS; CPT 45378; principal; 2024-07-03 13:30)
DX: Z12.11 Encounter for screening for malignant neoplasm of colon (principal); D12.2 Benign neoplasm of ascending colon; D12.4 Benign neoplasm of descending colon; K63.5 Polyp of colon; K62.1 Rectal polyp; K64.8 Other hemorrhoids; K22.70 Barrett's esophagus without dysplasia; K44.9 Diaphragmatic hernia without obstruction or gangrene; K21.00 Gastro-esophageal reflux disease with esophagitis, without bleeding; K31.A0 Gastric intestinal metaplasia, unspecified
CPT/HCPCS: 45385; 43239; 88305; J2003; J2704; J7120

== ENCOUNTER 2024-11-05 20:09 | Emergency (ER) | payer MEDICARE, SELFPAY ==
[2024-11-05 20:09] VITALS: BP 179/87; PULSE 82; RESP 18; TEMP 36.4; O2SAT 97
--- NOTE | 2024-11-05 20:12 | ECG_ITS ---
Test Date: 2024-11-05 20:14:23 Measurements Intervals [place] Rate: 74 P: 48 VT: 152 QRS: 0 QRSD: 86 T: 29 QT: 364 QTc: 404 Interpretive Statements SINUS RHYTHM DELAYED PRECORDIAL R/S TRANSITION BORDERLINE T WAVE ABNORMALITY- INFERIOR LEADS BASELINE ARTIFACT- I, III, AVL BORDERLINE ECG No previous ECG available for comparison Electronically Signed On 11-05-2024 20:17:03 CDT by Nixon Minor D.O.
[2024-11-05 20:15] VITALS: PULSE 79; RESP 20; O2SAT 100
[2024-11-05 20:35] LABS: Hematocrit 43.5 % (42.0-52.0); Hemoglobin 14.4 g/dL (14.0-18.0); Immature Granulocyte Percent A 0.3 % (0-0.5); Lymphocytes Absolute Auto 1.44 K/mm3 (0.9-3.2); Mean Corpuscular HGB Conc 33.1 g/dl (32-36); Mean Corpuscular Hemoglobin 31.3 pg (26-34); Mean Corpuscular Volume 94.6 fl (80-100); Nucleated Red Blood Cells Absolute Auto 0.000 K/mm3 (0.0-0.012); Nucleated Red Blood Cells Perc 0.0 % (0.0-0.2); Platelet Count Result 199 k/mm3 (150-375); Red Blood Count 4.60 M/mm3 (4.6-6.20); White Blood Count 7.4 K/mm3 (4.5-10.0)
[2024-11-05 20:47] LABS: Alanine Aminotransferase 24 U/L (6-50); Albumin Level 4.1 g/dL (3.5-5.1); Alkaline Phosphatase 108 U/L (38-126); Anion Gap 6 mmol/L (4-12); Aspartate Amino Transferase 30 U/L (17-59); Bilirubin,Total 0.6 mg/dL (0.2-1.3); Blood Urea Nitrogen 13 mg/dL (9-20); Calcium 9.1 mg/dL (8.4-10.2); Carbon Dioxide 26 mmol/L (22-30); Chloride 105 mmol/L (98-107); Estimated CRCL calculation 57 ml/min; Estimated Glomerular Filt Rate > 60; Glucose 137 mg/dL (65-110); Magnesium 2.3 mg/dL (1.6-2.3); Potassium 4.1 mmol/L (3.4-5.0); Sodium 137 mmol/L (137-145); Total Protein 6.8 g/dL (6.3-8.2)
--- NOTE | 2024-11-05 21:15 | ED.GENADULT ---
HPI - General Adult General Chief complaint: Unspecified Stated complaint: Twitch in L arm/HTN Time Seen by Provider: 11/05/24 20:12 History of Present Illness HPI narrative: Patient is a 79-year-old male who presents to the emergency department this evening complaining of an elevated blood pressure. Patient states that he does have a history of high blood pressure and does take medications regularly and does not skip any doses. Today he felt a twitch in his left arm which prompted him to check his blood pressure and he found to be ranging in the 200s over 100 mmHg. Patient then went to a nearby fire department and had them recheck his blood pressure and it was still high so he was sent here for further evaluation. Patient is currently denying any symptoms, denies any chest pain or shortness of breath, any recent illness, fevers or chills. Patient's blood pressure has normalized and is currently ranging in the 170 systolic. Related Data Home Medications ?Medication ?Instructions ?Recorded ?Confirmed ?Last Taken ?Type losartan 25 mg tablet 25 mg PO DAILY 06/22/24 11/05/24 07/02/24 History omeprazole 20 mg capsule,delayed 20 mg PO DAILY 06/22/24 11/05/24 07/02/24 History release rosuvastatin 20 mg tablet (Crestor) 20 mg PO DAILY 06/22/24 11/05/24 07/02/24 History chlorpheniramine 2 mg-DM 10 1 tablet PO Q4H PRN cold symptoms 11/05/24 11/05/24 Unknown History mg-acetaminophen 325 mg tablet (Coricidin HBP Flu) cholecalciferol (vitamin D3) 1,250 11/05/24 Unknown History mcg (50,000 unit) capsule hukydxaosjqz-[id number] 1 tablet PO DAILY 11/05/24 11/05/24 Unknown History tablet (Multivitamin 50 Plus tablet) Allergies Allergy/AdvReac Type Severity Reaction Status Date / Time ibuprofen Allergy Unknown Vomiting Verified 07/03/24 12:21 Review of Systems Review of Systems: All systems are reviewed and are negative unless stated otherwise in the HPI. 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 Spiritual care concerns: No Exam Narrative: General: Alert, awake, afebrile, in no acute distress. HEENT: PERRL, no rhinorrhea, no post nasal drip, oropharynx clear. Neck: Trachea midline, no JVD, no lymphadenopathy. Cardiovascular: Regular rate and rhythm, no murmurs, rubs or gallops, no peripheral edema. Respiratory: Clear to auscultation bilaterally, no tachypnea, no wheezing, no rhonchi, no rubs, no respiratory distress. Abdomen: Soft, nontender, nondistended, no rebound, no guarding, no peritoneal signs. Musculoskeletal: No joint swelling or deformity, normal muscle tone. Skin: No rashes or petechia, no signs of infection. Psychiatric: Alert and oriented, normal behavior and judgment for situation. Neurological: Alert and oriented to person, place, and time. Follows all commands. No focal deficits, speech is clear and fluent. Course Vital Signs Vital signs: Vital Signs Temperature 97.6 F 11/05/24 20:09 Pulse Rate 82 11/05/24 20:09 Respiratory Rate 18 11/05/24 20:09 Blood Pressure 179/87 H 11/05/24 20:09 Pulse Oximetry 97 11/05/24 20:09 Oxygen Delivery Room Air 11/05/24 20:09 Temperature 97.6 F 11/05/24 20:09 Pulse Rate 82 11/05/24 20:09 Respiratory Rate 18 11/05/24 20:09 Blood Pressure 179/87 H 11/05/24 20:09 Pulse Oximetry 97 11/05/24 20:09 Oxygen Delivery Room Air 11/05/24 20:09 Medical Decision Making MDM Narrative Medical decision making narrative: The patient was evaluated by myself in the emergency department. History is obtained from patient who is an independent historian and physical exam was performed. External medical records were reviewed at this time. IV was established and pertinent tests were ordered. EKG was obtained which revealed sinus rhythm rate of 74 beats per minute, no evidence of acute ischemia. EKG was independently interpreted by me and is currently pending official cardiology read. Laboratory results obtained revealing no acute process. Differential diagnosis considerations include acute stress reaction, acute viral syndrome, hypertensive urgency versus emergency. Comorbidities impacting this visit include history of hypertension. I have evaluated and discussed social determinants of health with the patient that could potentially impact subsequent diagnosis and treatment plans. On repeat assessment of the patient, reevaluation revealed that the patient is doing well and is in no acute distress. Patient symptoms have improved since he arrived to our emergency department. Repeat vital signs were all reviewed and noted to be stable with current blood pressure of 143/75 mmHg. No blood pressure medications were administered in the ED.. Differential diagnosis and treatment plan were discussed with the patient at bedside. Patient agrees with discussion and after shared medical decision making agrees with discharge. All questions were answered to the patient's satisfaction. Patient will follow up with his PCP in 3-5 days. Patient was provided with strict return precautions and instructed to return to the emergency department if any new or worsening symptoms develop. The patient was discharged in stable condition. Vital Signs Vital Signs: Vital Signs Temperature 97.6 F 11/05/24 20:09 Pulse Rate 82 11/05/24 20:09 Respiratory Rate 18 11/05/24 20:09 Blood Pressure 179/87 H 11/05/24 20:09 Pulse Oximetry 97 11/05/24 20:09 Oxygen Delivery Room Air 11/05/24 20:09 Temperature 97.6 F 11/05/24 20:09 Pulse Rate 82 11/05/24 20:09 Respiratory Rate 18 11/05/24 20:09 Blood Pressure 179/87 H 11/05/24 20:09 Pulse Oximetry 97 11/05/24 20:09 Oxygen Delivery Room Air 11/05/24 20:09 Lab Data 11/05/24 20:29 11/05/24 20:29 Labs: Lab Results 11/05/24 Range/Units 20:29 WBC 7.4 (4.5-10.0) K/mm3 RBC 4.60 (4.6-6.20) M/mm3 Hgb 14.4 (14.0-18.0) g/dL Hct 43.5 (42.0-52.0) % MCV 94.6 (80-100) fl MCH 31.3 (26-34) pg MCHC 33.1 (32-36) g/dl RDW 12.6 (11.5-14.5) % Plt Count 199 (150-375) k/mm3 MPV 9.4 (7.4-10.4) fl Immature Gran % (Auto) 0.3 (0-0.5) % Neut % (Auto) 68.1 (45.5-73.1) % Lymph % (Auto) 19.4 (18.3-44.2) % Spencer % (Auto) 6.6 (2.6-8.5) % Eos % (Auto) 4.5 H (0-4.4) % Baso % (Auto) 1.1 (0.2-1.2) % Lymph # (Auto) 1.44 (0.9-3.2) K/mm3 Spencer # (Auto) 0.5 (0.1-0.6) K/mm3 Eos # (Auto) 0.3 (0-0.3) K/mm3 Baso # (Auto) 0.1 (0.0-0.1) K/mm3 Abs Immat Gran (auto) 0.02 (0.00-0.031) K/mm3 Absolute Neuts (auto) 5.1 (1.3-6.7) K/mm3 Absolute Nucleated RBC 0.000 (0.0-0.012) K/mm3 Nucleated RBC % 0.0 (0.0-0.2) % Sodium 137 (137-145) mmol/L Potassium 4.1 (3.4-5.0) mmol/L Chloride 105 (98-107) mmol/L Carbon Dioxide 26 (22-30) mmol/L Anion Gap 6 (4-12) mmol/L BUN 13 (9-20) mg/dL Creatinine 0.95 (0.7-1.3) mg/dL Estim Creat Clear Calc 57 ml/min Estimated GFR > 60 (59 - ) Glucose 137 H (65-110) mg/dL Calcium 9.1 (8.4-10.2) mg/dL Magnesium 2.3 (1.6-2.3) mg/dL Total Bilirubin 0.6 (0.2-1.3) mg/dL AST 30 (17-59) U/L ALT 24 (6-50) U/L Alkaline Phosphatase 108 (38-126) U/L Total Protein 6.8 (6.3-8.2) g/dL Albumin 4.1 (3.5-5.1) g/dL Discharge Plan Discharge Clinical Impression: Hypertension Patient Disposition: Home Condition: Improved Instructions: Antibiotic Form, Hypertension (ED) Additional Instructions: Please follow-up with your family doctor within the next 3-5 days. Your instructed to keep a blood pressure log by checking blood pressure same time every day 2 times per day until you see your doctor as you may need to have your blood pressure medications were adjusted. Return to the ED if any new or worsening symptoms develop. Patient Language: Yi Prescriptions: No Action cholecalciferol (vitamin D3) 1,250 mcg (50,000 unit) capsule Multivitamin 50 Plus Tablet 1 tablet PO DAILY Coricidin HBP Flu 2-10-325 mg tablet 1 tablet PO Q4H PRN (Reason: cold symptoms) losartan 25 mg tablet 25 mg PO DAILY omeprazole 20 mg capsule,delayed release(DR/EC) 20 mg PO DAILY rosuvastatin [Crestor] 20 mg tablet 20 mg PO DAILY Follow-up/Referrals: Mary,MD Adolfo [Primary Care Provider, Unknown] - 3 Days Time of Disposition: 21:16
[2024-11-05 21:20] VITALS: BP 143/75; PULSE 79; RESP 20; O2SAT 95
== END 2024-11-05 21:37 | disposition home or self-care (01) ==
PROVIDERS: Emergency Provider Emergency Medicine; PCP Internal Medicine
DX: I10 Essential (primary) hypertension (principal); Z79.899 Other long term (current) drug therapy
CPT/HCPCS: 36415; 80053; 83735; 85025; 93005; 99283